=== PATIENT | female | born 1990 | race African-American/Black ===

== ENCOUNTER 2020-06-13 23:47 | Emergency (ER) | payer SELFPAY ==
[~2020-06-13] VITALS: Ht 167.6 cm; Wt 78.0 kg
[2020-06-13 23:50] VITALS: BP 124/73
== END 2020-06-14 01:16 | disposition home or self-care (01) ==
LOC: ER 23:49
DX: N89.8 Other specified noninflammatory disorders of vagina (principal)
CPT/HCPCS: 87110-TC; 87210-TC